=== PATIENT | female | born 1940 | race Caucasian/White ===

== ENCOUNTER 2020-10-08 15:44 | Day surgery (SDCO) | payer OTHER, SELFPAY ==
[2020-10-08 17:08] LABS: BASOPHIL 0.1 % (0-2); EOSINOPHIL 0 % (0-7); HCT 28.3 % (37.0-47.0); HGB 9.1 g/dl (12.5-16.0); LYMPHOCYTE 3.7 % (15-48); MCH 30.2 pg (25.0-31.0); MCHC 32.2 g/dL (32.0-36.0); MONOCYTE 9.4 % (0-12); NEUTROPHIL 85.8 % (41-80); NRBC 0; RBC 3.01 M/uL (4.20-5.40); RDW 16.9 % (11.5-14.0); WBC 8.4 K/uL (4.0-10.5)
[2020-10-08 17:20] LABS: INR 1.14 (0.9-1.2); PROTHROMBIN TIME 13.9 SECONDS (11.4-13.6); PTT 28.5 SECONDS (22.2-34.7)
[2020-10-08 17:32] LABS: ALBUMIN 3.1 g/dL (3.4-5.0); BILIRUBIN - TOTAL 0.3 mg/dL (0.2-1.0); BUN/CREAT RATIO (CALC) 36.1 RATIO; CREATININE 0.61 mg/dL (0.51-0.95); GLOBULIN (CALCULATION) 2.7 g/dL; POTASSIUM 3.5 mmol/L (3.5-5.1); TOTAL PROTEIN 5.8 g/dL (6.4-8.2)
[2020-10-08 17:36] LABS: PLT 18 K/uL (150-400)
[2020-10-08] MEDS ORDERED: LEVOTHYROXINE50 MC1 PO (19:57)
[2020-10-08] MEDS ORDERED: METOPROLOL SUCC25 MG PO (19:58)
[2020-10-08] MEDS ORDERED: LASIX20 MG PO (19:59)
[2020-10-08] MEDS ORDERED: UROCIT-K10 MEQ PO (20:00)
[2020-10-08] MEDS ORDERED: DIOVAN320 MG PO (20:00)
[2020-10-08] MEDS ORDERED: ELIQUIS2.5 MG PO (20:01)
[2020-10-08] MEDS ORDERED: PROZAC20 M1 PO (20:02)
[2020-10-08] MEDS ORDERED: PROBIOTIC1 EAC1 PO (20:02)
[2020-10-08] MEDS ORDERED: BENADRYL25 M1 PO (20:03)
[2020-10-08] MEDS ORDERED: CENTRUM SILVER1 EAC4 PO (20:04)
[2020-10-08] MEDS ORDERED: ENSURE ORIGINA237 ML PO (20:05)
[2020-10-09 04:52] LABS: BASOPHIL 0.2 % (0-2); EOSINOPHIL 0 % (0-7); HCT 25.5 % (37.0-47.0); HGB 8.3 g/dl (12.5-16.0); LYMPHOCYTE 12.3 % (15-48); MCH 30.1 pg (25.0-31.0); MCHC 32.5 g/dL (32.0-36.0); MCV 92.4 fL (78.0-100.0); MONOCYTE 16.9 % (0-12); NEUTROPHIL 69.8 % (41-80); NRBC 0; RBC 2.76 M/uL (4.20-5.40); RDW 16.9 % (11.5-14.0); WBC 6.3 K/uL (4.0-10.5)
[2020-10-09 05:01] LABS: INR 1.08 (0.9-1.2); PROTHROMBIN TIME 13.3 SECONDS (11.4-13.6)
[2020-10-09 05:09] LABS: BUN/CREAT RATIO (CALC) 23.8 RATIO; CREATININE 0.63 mg/dL (0.51-0.95); POTASSIUM 3.2 mmol/L (3.5-5.1)
[2020-10-09 06:01] LABS: PLT 4 K/uL (150-400)
--- NOTE | 2020-10-09 17:29 | NUR ---
PT BEGAN TO RECIEVE BLOOD PRODUCTS AT 1150 VITAL WERE STABLE. STAYED WITH PATIENT FOR 15 MINUTES, EMS ARRIVED AT 1200 TO TRANSFER TO [facility] FOR EAR, NOSE AND THROAT, PT LEFT FROM FLOOR BEFORE NEXT VITALS WERE ABLE TO BE OBTAINED AND BEFORE ORDERED LABS COULD BE DRAWN. PT WAS STABLE UPON LEAVING THE FLOOR WITH NO COMPLAIBNTS NO DISTRESS WAS NOTED
== END 2020-10-09 12:20 | disposition other institution (70) ==
LOC: FER 15:44 → FMS 18:18
PROVIDERS: Emergency Medicine; Nurse Practitioner; ADMIT Hospitalist
DX: R04.0 Epistaxis (principal); D69.6 Thrombocytopenia, unspecified; U07.1 COVID-19; I11.0 Hypertensive heart disease with heart failure; I50.9 Heart failure, unspecified; I48.91 Unspecified atrial fibrillation; E03.9 Hypothyroidism, unspecified; J32.0 Chronic maxillary sinusitis; J44.9 Chronic obstructive pulmonary disease, unspecified; F17.210 Nicotine dependence, cigarettes, uncomplicated; Z98.890 Other specified postprocedural states; D69.3 Immune thrombocytopenic purpura; Z90.710 Acquired absence of both cervix and uterus; Z85.6 Personal history of leukemia
CPT/HCPCS: 36415; 36430; 80048; 80053; 83010; 83615; 83735; 85025; 85610; 85730; 86850; 86880; 86900; 86901; 86922; C9046; G0378; J1100; J2405; P9016; P9035; U0002